=== PATIENT | male | born 1970 | race Caucasian/White ===

== ENCOUNTER → 2018-10-08 08:48 | Outpatient (CLI) | payer OTHER, SELFPAY ==
[2018-10-08 11:16] LABS: Cholesterol 190 mg/dL (140-199); HDL Cholesterol 58 mg/dL (40-60); LDL Cholesterol Calculated 117 mg/dL (<100); Triglycerides 77 mg/dL (35-150)
== END ==
PROVIDERS: Family Provider Internal Medicine; PCP Internal Medicine; Visit Provider Internal Medicine
DX: E78.00 Pure hypercholesterolemia, unspecified (principal)
CPT/HCPCS: 36415; 80061

== ENCOUNTER → 2019-08-01 18:35 | Outpatient (CLI) | payer OTHER, SELFPAY ==
--- NOTE | 2019-08-01 18:38 | DI.MRI.S_ITS ---
PROCEDURE: MR CERVICAL SPINE WO CON INDICATIONS: CERVICALGIA TECHNIQUE: Noncontrast sagittal T1 spin echo and T2 fast spin echo, sagittal STIR, foraminal oblique sagittal T2 fast spin echo, and axial gradient echo or T2 fast spin echo through the cervical spine. COMPARISON: None. FINDINGS: Image quality: Excellent. Alignment and Curvature: There is normal bony alignment. Bone Marrow: Marrow demonstrates normal overall signal. Spinal Cord: Visualized spinal cord has normal size and signal. No cerebellar tonsillar herniation. Paraspinous Soft Tissues: No paravertebral masses. Prevertebral soft tissues are normal in thickness. C2-C3: Mild central posterior disc protrusion without canal stenosis. Mild bilateral facet hypertrophy. No significant foraminal narrowing. C3-C4: Mild disc bulge. No canal stenosis. Mild bilateral facet hypertrophy. Mild bilateral foraminal narrowing. C4-C5: Mild disc bulge. No significant canal stenosis. Mild bilateral facet hypertrophy. Mild bilateral foraminal narrowing. C5-C6: A left posterior lateral disc protrusion/extrusion flattens the left ventral cord and obliterates the left C6 nerve root in the lateral recess and foramen. The bilateral facet hypertrophy. Mild right foraminal narrowing. C6-C7: There is moderate diffuse disc bulge. There is right posterior lateral disc protrusion. There is indentation on the ventral cord and moderate to severe canal stenosis. There is impingement on the right C7 nerve root in in the right lateral recess and medial right foramen by disc protrusion. There is bilateral facet hypertrophy. Left uncovertebral joint hypertrophy results in left foraminal narrowing impingement on the left C7 nerve root in the foramen. C7-T1: No canal stenosis or foraminal stenosis IMPRESSION: 1. At C5-C6, a left posterior lateral disc protrusion/extrusion flattens the left ventral cord and obliterates the left C6 nerve root in the left lateral recess and left foramen. 2. At C6-C7, there is moderate diffuse disc bulge resulting in moderate to severe canal stenosis. There is right posterior lateral disc protrusion which impinges on the right C7 nerve root in the right lateral recess and medial right foramen. There is also severe left foraminal narrowing and impingement on the left C7 nerve root. Dictated by: Aftab Murray M.D. on 08/04/2019 at 9:24 Approved by: Aftab Murray M.D. on 08/04/2019 at 9:35
== END ==
PROVIDERS: Family Provider Internal Medicine; PCP Internal Medicine; Visit Provider Physician Assistant
DX: M50.222 Other cervical disc displacement at C5-C6 level (principal); M48.02 Spinal stenosis, cervical region; M79.602 Pain in left arm; R29.898 Other symptoms and signs involving the musculoskeletal system
CPT/HCPCS: 72141

== ENCOUNTER 2019-10-12 06:33 | Emergency (ER) | payer OTHER, SELFPAY ==
[2019-10-12 06:40] VITALS: BP 169/85; PULSE 52; RESP 15; TEMP 36.6; O2SAT 100
--- NOTE | 2019-10-12 06:58 | DI.CT.S_ITS ---
PROCEDURE: CT KIDNEY URETER BLADDER (KUB) INDICATIONS: r/u kidney stone TECHNIQUE: Noncontrast 5 mm thick sections acquired from the diaphragms to the symphysis. 5 mm thick coronal and sagittal reformats were then performed. For radiation dose reduction, the following was used: automated exposure control, adjustment of mA and/or kV according to patient size. COMPARISON: None. FINDINGS: Image quality: Excellent. Lung bases: Lung bases are clear. Heart size is normal. Urinary system: Both kidneys are normal in size. No renal calculi are evident. There is no significant hydronephrosis or perinephric edema. There is mild hydroureter on the right with a calculus evident within the proximal right ureter just beyond the ureteropelvic junction, which measures 3 x 4 x 5 mm. No additional ureteral calculi are identified. There is no left-sided hydroureter. The urinary bladder is unremarkable. No bladder calculi are evident. Other solid organs: Liver is normal in size. Gallbladder is not enlarged or inflamed. Pancreas is normal in contours. Spleen is normal in size. No adrenal nodules. Peritoneum and bowel: The stomach is unremarkable. The small bowel loops are nondilated. A moderate amount of residual stool is identified throughout the colon. The appendix is well-visualized and normal. There may be minimal areas of distal colonic diverticulosis without surrounding inflammation to suggest diverticulitis. No free fluid or like a limited fluid collections evident. There is no free air. Nodes and vessels: No retroperitoneal or mesenteric adenopathy by size criteria. Aorta and inferior vena cava are normal in caliber. Other pelvic soft tissues: No free pelvic fluid. No inguinal hernias or adenopathy. The prostate is unremarkable. Bones: No suspicious bony lesions. No vertebral body compression fractures. Mild degenerative changes of the lower lumbar spine are present. IMPRESSION: 1. Proximal right ureteral calculus measuring up to 5 mm with associated periureteral stranding and mild hydroureter. No definite hydronephrosis. 2. No additional renal or ureteral calculi. 3. Possible constipation. No bowel obstruction. Dictated by: Dony Wagner M.D. on 10/12/2019 at 7:32 Approved by: Dony Wagner M.D. on 10/12/2019 at 7:36
[2019-10-12] MEDS: KETOROLAC 60 MG/2 ML VIAL 30 MG IV (07:03)
[2019-10-12] MEDS: ONDANSETRON 4 MG/2 ML INJ IV (07:04)
[2019-10-12 07:09] LABS: Add Manual Diff / Slide Review NO; Basophils Absolute Auto 100 /uL (0-100); Basophils Percent Auto 1.5 % (0-2); Eosinophils Absolute Auto 500 /uL (0-450); Eosinophils Percent Auto 7.5 % (2-4); Hematocrit 44.1 % (41-53); Hemoglobin 15.8 g/dL (13.5-17.5); Lymphocytes Absolute Auto 2000 /uL (1100-4500); Lymphocytes Percent Auto 30.5 % (25-40); Mean Corpuscular HGB Conc 35.7 % (30-36); Mean Corpuscular Hemoglobin 32.8 PG (26-34); Mean Corpuscular Volume 91.7 fL (80-100); Monocytes Absolute Auto 700 /uL (0-900); Monocytes Percent Auto 10.2 % (3-14); Neutrophils Absolute Auto 3300 /uL (1500-7000); Neutrophils Percent Auto 50.3 % (50-75); Platelet Count 183 X10^3/uL (150-400); Red Blood Cell Count 4.81 X10^6/uL (4.5-5.9); Red Cell Distribution Width 12.8 % (11.6-14.8); White Blood Cell Count 6.5 X10^3/uL (4.5-11.0)
[2019-10-12 07:12] LABS: Alanine Aminotransferase 23 IU/L (<50); Albumin 4.7 g/dL (3.5-5.0); Albumin Globulin Ratio 1.4 (1.0-2.8); Alkaline Phosphatase 64 U/L (38-126); Aspartate Aminotransferase 33 IU/L (17-59); BUN Creatinine Ratio 15.7 (6-22); Blood Urea Nitrogen 11 mg/dL (9-20); Calcium 9.4 mg/dL (8.4-10.2); Carbon Dioxide 22 mmol/L (22-32); Chloride 106 mmol/L (98-107); Estimated Glomerular Filt Rate > 60.0 mL/min (>60); Globulin 3.3 g/dL (1.7-4.1); Glucose 124 mg/dL (70-100); HEMOLYSIS < 15 (0-50); Lipase 88 U/L (23-300); Potassium 3.9 mmol/L (3.4-5.1); Sodium 141 mmol/L (137-145)
--- NOTE | 2019-10-12 07:47 | ED_ITS ---
HPI - Back Pain/Injury General Chief Complaint: Back Pain/Injury Stated Complaint: right lower back and stomach pain Time Seen by Provider: 10/12/19 07:19 Source: patient Limitations: no limitations History of Present Illness HPI Narrative: Patient is a 49-year-old male who presents with right-sided flank pain which started suddenly radiating around his abdomen this morning. He felt nauseous he did not throw up he actually had a regular bowel movement. He has no prior history of kidney stones his urine does appear dark and bloody. He says he was fine last night. He has received Toradol and Zofran prior to my evaluation and his pain is significantly. MD Complaint: back pain (Right flank) Quality: sharp Radiation: abdomen Related Data Previous Rx's Medication Instructions Recorded hydrocodone-acetaminophen 1 tab PO Q6H PRN #10 tab 10/12/19 ondansetron 4 mg PO Q8H PRN #10 tab 10/12/19 Allergies Allergy/AdvReac Type Severity Reaction Status Date / Time No Known Drug Allergies Allergy Verified 10/12/19 07:01 Review of Systems Review of Systems Narrative: GENERAL: Denies chills, fatigue, malaise, fever, sweats, travel HEENT: Denies sinus pain, ear pain, sore throat, difficulty swallowing, neck pain RESPIRATORY: Denies dyspnea, cough, wheezing, hemoptysis, sputum. CARDIOVASCULAR: Denies chest pain, palpitations, orthopnea, edema GASTROINTESTINAL: Denies nausea, vomiting, abdominal pain, diarrhea, constipation, melena. : See HPI MUSCULOSKELETAL: Denies weakness, joint pain, or bony pain SKIN: No rash, no erythema, no pruritus NEUROLOGIC: Denies weakness, dizziness, headache, numbness, change in speech, confusion PSYCHIATRIC: No concerning psychosocial issues. 12 point review of systems is negative except for those stated above and HPI Patient History Medical History Patient denies medical problems (Acute) Exam Initial Vital Signs Initial Vital Signs: Vital Signs Temperature 97.9 F 10/12/19 06:40 Pulse Rate 52 L 10/12/19 06:40 Respiratory Rate 15 10/12/19 06:40 Blood Pressure 169/85 H 10/12/19 06:40 Pulse Oximetry 100 10/12/19 06:40 GENERAL: Well-appearing, well-nourished and in no acute distress. HEENT: Head atraumatic,EOMI, pupils reactive, face symmetric, moist mucous membrane CARDIOVASCULAR: Regular rate and rhythm without murmurs, rubs or gallops. RESPIRATORY: Breath sounds equal bilaterally, no wheezes rales or rhonchi. ABDOMEN: Soft, nontender. Normoactive bowel sounds all 4 quadrants. No guarding or rebound. : Mild right CVA tenderness EXTREMITIES: Normal range of motion, no clubbing or edema. Neurovascularly intact NEUROLOGICAL: Alert and oriented x4.Normal gait and speech. SKIN: Warm, dry, no laceration, no petechiae, no rashes or lesions. Course Orders Ordered: ED Orders 10/12/19 06:45 CBC Auto Diff [Complete Blood Count AUTO DIFF] Stat Comprehensive Metabolic Panel Stat Lipase Stat 10/12/19 06:58 CT kidney ureter bladder (KUB) Stat 10/12/19 08:00 UA Complete [Urinalysis and Microscopic] Stat Discontinued Medications Ketorolac Tromethamine (Toradol) 30 mg IV NOW ONE Stop: 10/12/19 06:59 Last Admin: 10/12/19 07:03 Dose: 30 mg Documented by: AMAN Ondansetron HCl (Zofran) 4 mg IV NOW ONE Stop: 10/12/19 06:59 Last Admin: 10/12/19 07:04 Dose: 4 mg Documented by: AMAN Vital Signs Vital signs: Vital Signs - 8 hr 10/12/19 06:40 10/12/19 10:01 Temperature 97.9 F Pulse Rate 52 L 80 Respiratory Rate 15 18 Blood Pressure 169/85 H 125/72 Pulse Oximetry 100 100 MDM - Back Pain/Injury Lab Data Attestation: I reviewed the patient's lab results. Result diagrams: 10/12/19 06:45 10/12/19 06:45 Labs: Lab Results 10/12/19 10/12/19 10/12/19 Range/Units 06:45 06:45 06:45 WBC 6.5 (4.5-11.0) X10^3/uL RBC 4.81 (4.5-5.9) X10^6/uL Hgb 15.8 (13.5-17.5) g/dL Hct 44.1 (41-53) % MCV 91.7 (80-100) fL MCH 32.8 (26-34) PG MCHC 35.7 (30-36) % RDW 12.8 (11.6-14.8) % Plt Count 183 (150-400) X10^3/uL Neut % (Auto) 50.3 (50-75) % Lymph % (Auto) 30.5 (25-40) % [place] % (Auto) 10.2 (3-14) % Eos % (Auto) 7.5 H (2-4) % Baso % (Auto) 1.5 (0-2) % Neut # (Auto) 3300 (6003-6466) /uL Lymph # (Auto) 2000 (5399-2824) /uL [place] # (Auto) 700 (0-900) /uL Eos # (Auto) 500 H (0-450) /uL Baso # (Auto) 100 (0-100) /uL Sodium 141 (137-145) mmol/L Potassium 3.9 (3.4-5.1) mmol/L Chloride 106 (98-107) mmol/L Carbon Dioxide 22 (22-32) mmol/L BUN 11 (9-20) mg/dL Creatinine 0.70 (0.66-1.25) mg/dL Estimated GFR > 60.0 (>60) mL/min BUN/Creatinine Ratio 15.7 (6-22) Glucose 124 H (70-100) mg/dL Calcium 9.4 (8.4-10.2) mg/dL Total Bilirubin 1.0 (0.2-1.3) mg/dL AST 33 (17-59) IU/L ALT 23 (<50) IU/L Alkaline Phosphatase 64 (38-126) U/L Total Protein 8.0 (6.3-8.2) g/dL Albumin 4.7 (3.5-5.0) g/dL Globulin 3.3 (1.7-4.1) g/dL Albumin/Globulin Ratio 1.4 (1.0-2.8) Lipase 88 (23-300) U/L Urine Color Urine Appearance Urine pH (4.5-8.0) Ur Specific [place] (1.000-1.035) Urine Protein (Negative) Urine Glucose (UA) (Negative) g/dL Urine Ketones (NEGATIVE) Urine Occult Blood (Negative) Urine Nitrate (Negative) Urine Bilirubin (NEGATIVE) Urine Urobilinogen (0.2) E.U./dL Ur Leukocyte Esterase (NEGATIVE) Urine RBC (0-5/HPF) Urine WBC (0-5/HPF) Ur Squamous Epith Cells (0-5/HPF) Urine Bacteria (None) Ur Culture Indicated? 10/12/19 Range/Units 08:00 WBC (4.5-11.0) X10^3/uL RBC (4.5-5.9) X10^6/uL Hgb (13.5-17.5) g/dL Hct (41-53) % MCV (80-100) fL MCH (26-34) PG MCHC (30-36) % RDW (11.6-14.8) % Plt Count (150-400) X10^3/uL Neut % (Auto) (50-75) % Lymph % (Auto) (25-40) % [place] % (Auto) (3-14) % Eos % (Auto) (2-4) % Baso % (Auto) (0-2) % Neut # (Auto) (6717-5693) /uL Lymph # (Auto) (9899-8069) /uL [place] # (Auto) (0-900) /uL Eos # (Auto) (0-450) /uL Baso # (Auto) (0-100) /uL Sodium (137-145) mmol/L Potassium (3.4-5.1) mmol/L Chloride (98-107) mmol/L Carbon Dioxide (22-32) mmol/L BUN (9-20) mg/dL Creatinine (0.66-1.25) mg/dL Estimated GFR (>60) mL/min BUN/Creatinine Ratio (6-22) Glucose (70-100) mg/dL Calcium (8.4-10.2) mg/dL Total Bilirubin (0.2-1.3) mg/dL AST (17-59) IU/L ALT (<50) IU/L Alkaline Phosphatase (38-126) U/L Total Protein (6.3-8.2) g/dL Albumin (3.5-5.0) g/dL Globulin (1.7-4.1) g/dL Albumin/Globulin Ratio (1.0-2.8) Lipase (23-300) U/L Urine Color Brown Urine Appearance Cloudy Urine pH 8.5 H (4.5-8.0) Ur Specific [place] 1.015 (1.000-1.035) Urine Protein 1+ H (Negative) Urine Glucose (UA) Negative (Negative) g/dL Urine Ketones 1+ H (NEGATIVE) Urine Occult Blood 3+ H (Negative) Urine Nitrate Negative (Negative) Urine Bilirubin Negative (NEGATIVE) Urine Urobilinogen 0.2 (0.2) E.U./dL Ur Leukocyte Esterase Negative (NEGATIVE) Urine RBC >100/hpf (0-5/HPF) Urine WBC 1-5/hpf (0-5/HPF) Ur Squamous Epith Cells 1-5 /hpf (0-5/HPF) Urine Bacteria None seen (None) Ur Culture Indicated? Cult not indicated Imaging Data CT scan - abdomen/pelvis: Radiologist's Impression: Preliminary report: Small proximal right ureteral stone with mild right hydronephrosis. The stone measures 2.5 x 2.5 x 4.3 mm no distal ureteral stone no stone or obstruction on the left MDM Narrative Medical decision making narrative: The patient's pain is controlled after Toradol requiring no further medications. No sign of renal failure kidney stone is relatively small he should pass it. He has follow-up with PCP who can refer him to urology if needed Discharge Plan Departure Patient Disposition: Home Clinical Impression: Renal calculus, right Discharge Date/Time: 10/12/19 10:00 Instructions: DI for Kidney Stones Activity Restrictions/Additional Instructions: * You've been diagnosed with kidney stone * What to do: Increase fluid intake, Strain urine, try to catch stone * Please follow-up with your primary care provider in the next 2-3 days, you may require urology consultation please discuss this with them -If you should have fever, or pain is uncontrolled with medication at home or any other concerning symptoms return to ER for further evaluation MEDICATIONS Take Motrin 800 mg every 8 hours as needed for pain Take [place] every 6 hours if needed for severe pain Take Zofran every 4-6 hours if needed for nausea CONTROLLED SUBSTANCE DISCHARGE (Narcotoic/benzodiazepine) 1. You have been prescribed narcotic medications, it does have acetaminophen/Tylenol/paracetamol in it so do not take extra Tylenol or Tylenol containing products 2. Please understand that we cannot provide further refills of narcotics, benzodiazepines or controlled substances through the ED and her pain management will need to be through your provider. 3. While on these medications you cannot drive or operate heavy machinery. 4. You cannot sign legal documents or perform any duties such as this. 5. As long as you're taking opiate pain medications he should also be taking a stool softener such as Colace, Dulcolax, MiraLAX or prune juice, to help avoid constipation. Prescriptions: New hydrocodone-acetaminophen 5-325 mg tablet 1 tab PO Q6H PRN (Reason: pain) Qty: 10 RF: 0 ondansetron 4 mg tablet,disintegrating 4 mg PO Q8H PRN (Reason: nausea and vomiting) Qty: 10 RF: 0 Referrals: Jonathon Sykes MD [Primary Care Provider] -
[2019-10-12 08:16] LABS: Appearance Urine UA CLOUDY; Bacteria Urine None Seen; Bilirubin Urine UA NEGATIVE (NEGATIVE); Color Urine UA BROWN; Glucose Urine UA NEGATIVE (Negative); Ketones Urine UA 1+ (NEGATIVE); Leukocyte Esterase Urine UA NEGATIVE (NEGATIVE); Nitrite Urine UA NEGATIVE (Negative); Occult Blood Urine UA 3+ (Negative); Protein Urine UA 1+ (Negative); Specific Gravity Urine UA 1.015 (1.000-1.035); Urobilinogen Urine UA 0.2 E.U./dL (0.2); pH Urine UA 8.5 (4.5-8.0)
[2019-10-12 08:33] LABS: RBC Urine >100/HPF (0-5/HPF)
[2019-10-12 08:34] LABS: Culture Indicated Urine Cult Not Indicated; Squamous Epithelial Cell Urine 1-5 /HPF (0-5/HPF); WBC Urine 1-5/HPF (0-5/HPF)
[2019-10-12 10:01] VITALS: BP 125/72; PULSE 80; RESP 18; O2SAT 100
== END 2019-10-12 10:00 | disposition home or self-care (01) ==
PROVIDERS: Emergency Medicine; Emergency Provider Emergency Medicine; Family Provider Internal Medicine; PCP Internal Medicine
DX: N20.0 Calculus of kidney (principal)
CPT/HCPCS: 36415; 74176; 80053; 81001; 83690; 85025; 96374; 96375; 99284; J1885; J2405

== ENCOUNTER → 2019-11-13 12:22 | Outpatient (ROUT) | payer OTHER, SELFPAY | PROVIDERS: Family Provider Internal Medicine; PCP Internal Medicine; Visit Provider Internal Medicine | DX: N20.1 Calculus of ureter (principal) | CPT/HCPCS: 87086 ==

== ENCOUNTER → 2021-12-13 13:02 | Outpatient (CLI) | payer OTHER, SELFPAY ==
[2021-12-13 17:01] LABS: COVID19 -Nasal RAPID Negative (Negative)
== END ==
PROVIDERS: Family Provider Internal Medicine; PCP Internal Medicine; Visit Provider Family Medicine Sleep Medicine
DX: Z20.822 Contact with and (suspected) exposure to COVID-19 (principal)
CPT/HCPCS: 87635; C9803

== ENCOUNTER 2021-12-14 09:30 | Day surgery (SDC) | payer OTHER, SELFPAY ==
[2021-12-14 09:43] VITALS: BP 132/83; PULSE 51; RESP 16; TEMP 36.1; O2SAT 99
[2021-12-14 09:44] VITALS: BMI 25.0
[2021-12-14] MEDS: SODIUM CHLORIDE 0.9% 1,000 ML 84 ML IV (09:51)
--- NOTE | 2021-12-14 10:20 | PM.HP.1 ---
History of Present Illness History of Present Illness Date Patient Seen: 12/14/21 Chief complaint: SDC Narrative: Family history of colon cancer in his father Patient History Medical History (Updated 12/14/21 @ 10:02 by Staci Bacon RN) Asthma History of melanoma History of renal calculi Surgical History (Updated 12/14/21 @ 10:01 by Staci Bacon RN) Hx of colonoscopy Hx of lymph node biopsy Family & Social History Social History: household members spouse Tobacco & Substance use: Smoking Status Never smoker alcohol intake current alcohol intake frequency 0-2 drinks per day Substance Use Type marijuana Meds Home Medications and Allergies Home Medications Medication Instructions Recorded Confirmed Type No Known Home Medications 12/14/21 12/14/21 History Allergies Allergy/AdvReac Type Severity Reaction Status Date / Time No Known Drug Allergies Allergy Verified 12/14/21 09:41 Exam Vital Signs (past 8 hours): - 12/14/21 09:43 Temperature 96.9 F L Pulse Rate 51 L Respiratory Rate 16 Blood Pressure 132/83 Pulse Oximetry 99 Oxygen Delivery Method Room Air Narrative Exam Narrative: Oropharynx free of lesions Chest clear to auscultation and percussion Cardiac exam reveals no S3 or murmur Assessment & Plan Assessment & Plan narrative: Family history of colon cancer need for follow-up colonoscopy at a 5 year interval. Risks, benefits, alternatives have been explained. Time Spent With Patient Critical Care time: I spent a total of [] minutes of critical care time on this patient's care today; this time is exclusive of procedural time.
--- NOTE | 2021-12-14 10:21 | PM.OP.COLON ---
Operative Date/Time/Diagnoses Date of procedure: 12/14/21 Pre-op diagnosis: See indication and findings Procedure & Clinicians Study performed: Colonoscopy Indications: Family history of colon cancer in his father Surgeon: Clarice Crockett Procedure Notes Procedure in detail: After informed consent was obtained the patient was placed in left lateral decubitus position. The video colonoscope was introduced the rectum slowly advanced cecum. Preparation was good. On slow withdrawal mucosa was carefully examined. The scope was removed. The patient tolerated procedure well. Blood loss none Complications none Sedation mac Findings 1. Normal colonoscopy to cecum Plan for follow-up colonoscopy in 5 years
[2021-12-14 11:30] VITALS: BP 116/80; PULSE 52; RESP 16; TEMP 36.6; O2SAT 94
[2021-12-14 11:35] VITALS: BP 118/78; PULSE 55; RESP 15; O2SAT 95
[2021-12-14 11:40] VITALS: BP 115/71; PULSE 51; RESP 15; O2SAT 95
[2021-12-14 11:45] VITALS: BP 109/72; PULSE 58; RESP 16; O2SAT 96
[2021-12-14 11:50] VITALS: BP 125/75; PULSE 51; RESP 14; O2SAT 97
== END 2021-12-14 12:08 | disposition home or self-care (01) ==
PROVIDERS: Family Provider Internal Medicine; PCP Internal Medicine; Referring Provider Internal Medicine Gastroenterology; Visit Provider Internal Medicine Gastroenterology
PROC: 0DJD8ZZ Inspection of Lower Intestinal Tract, Via Natural or Artificial Opening Endoscopic (ICD-10-PCS; CPT 45378; principal; 2021-12-14 11:00)
DX: Z12.11 Encounter for screening for malignant neoplasm of colon (principal); Z80.0 Family history of malignant neoplasm of digestive organs; J45.909 Unspecified asthma, uncomplicated
CPT/HCPCS: 45378; J2704

== ENCOUNTER → 2022-05-25 14:15 | Outpatient (CLI) | payer OTHER, SELFPAY ==
[2022-05-25 14:34] LABS: Hematocrit 38.3 % (41-53); Hemoglobin 13.4 g/dL (13.5-17.5); Mean Corpuscular HGB Conc 35.1 % (30-36); Mean Corpuscular Hemoglobin 32.2 PG (26-34); Mean Corpuscular Volume 91.8 fL (80-100); Platelet Count 201 X10^3/uL (150-400); Red Blood Cell Count 4.17 X10^6/uL (4.5-5.9); Red Cell Distribution Width 12.7 % (11.6-14.8); White Blood Cell Count 5.7 X10^3/uL (4.5-11.0)
[2022-05-25 15:00] LABS: Alanine Aminotransferase 25 IU/L (<50); Albumin 4.3 g/dL (3.5-5.0); Albumin Globulin Ratio 1.4 (1.0-2.8); Alkaline Phosphatase 51 U/L (38-126); Aspartate Aminotransferase 33 IU/L (17-59); BUN Creatinine Ratio 18.8 (6-22); Bilirubin Total 0.4 mg/dL (0.2-1.3); Blood Urea Nitrogen 13 mg/dL (9-20); Calcium 8.7 mg/dL (8.4-10.2); Carbon Dioxide 29 mmol/L (22-32); Chloride 104 mmol/L (98-107); Cholesterol 194 mg/dL (140-199); Estimated Glomerular Filt Rate > 60 mL/min (>60); Glucose 93 mg/dL (70-100); HDL Cholesterol 50 mg/dL (40-60); HEMOLYSIS < 15 (0-50); LDL Cholesterol Calculated 117 mg/dL (<100); Potassium 4.1 mmol/L (3.4-5.1); Sodium 137 mmol/L (137-145); Total Protein 7.3 g/dL (6.3-8.2); Triglycerides 137 mg/dL (35-150)
[2022-05-25 15:30] LABS: Prostate Specific Antigen 2.74 ng/mL (0.10-4.00); TSH w/ Reflex to FT4 1.62 uIU/mL (0.47-4.68)
== END ==
PROVIDERS: Family Provider Internal Medicine; PCP Internal Medicine; Referring Provider Internal Medicine; Visit Provider Internal Medicine
DX: E78.2 Mixed hyperlipidemia (principal); N13.8 Other obstructive and reflux uropathy; N40.1 Benign prostatic hyperplasia with lower urinary tract symptoms
CPT/HCPCS: 36415; 80053; 80061; 84153; 84443; 85027

== ENCOUNTER → 2022-05-30 07:55 | Outpatient (CLI) | payer OTHER, SELFPAY ==
[2022-05-30 09:12] LABS: Add Manual Diff / Slide Review NO; Basophils Absolute Auto 100 /uL (0-100); Basophils Percent Auto 1.4 % (0-2); Eosinophils Absolute Auto 400 /uL (0-450); Eosinophils Percent Auto 7.2 % (2-4); Hematocrit 38.4 % (41-53); Hemoglobin 13.7 g/dL (13.5-17.5); Lymphocytes Absolute Auto 1700 /uL (1100-4500); Lymphocytes Percent Auto 32.2 % (25-40); Mean Corpuscular HGB Conc 35.7 % (30-36); Mean Corpuscular Hemoglobin 32.5 PG (26-34); Mean Corpuscular Volume 91.1 fL (80-100); Monocytes Absolute Auto 600 /uL (0-900); Monocytes Percent Auto 11.1 % (3-14); Neutrophils Absolute Auto 2600 /uL (1500-7000); Neutrophils Percent Auto 48.1 % (50-75); Platelet Count 185 X10^3/uL (150-400); Red Blood Cell Count 4.21 X10^6/uL (4.5-5.9); Red Cell Distribution Width 12.6 % (11.6-14.8); White Blood Cell Count 5.3 X10^3/uL (4.5-11.0)
[2022-05-30 09:27] LABS: Lactate Dehydrogenase 388 U/L (313-618)
[2022-05-30 09:53] LABS: HEMOLYSIS < 15 (0-50); Iron 116 ug/dL (49-181)
[2022-05-30 09:59] LABS: Ferritin 21 ng/mL (18-464)
[2022-05-30 10:04] LABS: Percent Iron Saturation 33 % (20-50); Total Iron Binding Capacity 347 ug/dL (261-462); Transferrin 244 mg/dL (206-381)
[2022-05-30 10:13] LABS: Vitamin B12 426 pg/mL (239-931)
== END ==
PROVIDERS: Family Provider Internal Medicine; PCP Internal Medicine; Referring Provider Internal Medicine; Visit Provider Internal Medicine
DX: D64.9 Anemia, unspecified (principal); E53.8 Deficiency of other specified B group vitamins
CPT/HCPCS: 36415; 82607; 82728; 83540; 83550; 83615; 85025

== ENCOUNTER → 2022-07-18 08:57 | Outpatient (CLI) | payer OTHER, SELFPAY ==
[2022-07-18 10:38] LABS: Hematocrit 39.5 % (41-53); Hemoglobin 13.9 g/dL (13.5-17.5); Mean Corpuscular HGB Conc 35.2 % (30-36); Mean Corpuscular Hemoglobin 32.3 PG (26-34); Platelet Count 177 X10^3/uL (150-400); Red Cell Distribution Width 12.6 % (11.6-14.8); White Blood Cell Count 4.9 X10^3/uL (4.5-11.0)
[2022-07-18 10:56] LABS: HEMOLYSIS < 15 (0-50); Iron 127 ug/dL (49-181)
[2022-07-18 11:08] LABS: Percent Iron Saturation 35 % (20-50); Total Iron Binding Capacity 368 ug/dL (261-462); Transferrin 281 mg/dL (206-381)
[2022-07-18 11:32] LABS: Ferritin 17 ng/mL (18-464)
== END ==
PROVIDERS: Family Provider Internal Medicine; PCP Internal Medicine; Referring Provider Internal Medicine; Visit Provider Internal Medicine
DX: D64.9 Anemia, unspecified (principal)
CPT/HCPCS: 36415; 82728; 83540; 83550; 85027

== ENCOUNTER → 2022-12-30 08:17 | Outpatient (CLI) | payer OTHER, SELFPAY ==
[2022-12-30 10:14] LABS: Cholesterol 194 mg/dL (140-199); Glucose 89 mg/dL (70-100); HDL Cholesterol 48 mg/dL (40-60); LDL Cholesterol Calculated 132 mg/dL (<100); Triglycerides 71 mg/dL (35-150)
[2022-12-30 10:44] LABS: Prostate Specific Antigen Scrn 2.96 ng/mL (0.1-4.0)
== END ==
PROVIDERS: Family Provider Internal Medicine; PCP Internal Medicine; Referring Provider Internal Medicine; Visit Provider Internal Medicine
DX: Z00.00 Encounter for general adult medical examination without abnormal findings (principal); Z12.5 Encounter for screening for malignant neoplasm of prostate
CPT/HCPCS: 36415; 80061; 82947; G0103

== ENCOUNTER → 2024-01-01 08:34 | Outpatient (CLI) | payer OTHER, SELFPAY ==
[2024-01-01 09:39] LABS: Cholesterol 177 mg/dL (140-199); Glucose 87 mg/dL (70-100); HDL Cholesterol 55 mg/dL (40-60); LDL Cholesterol Calculated 104 mg/dL (<100); Triglycerides 91 mg/dL (35-150)
[2024-01-01 10:00] LABS: Prostate Specific Antigen Scrn 3.03 ng/mL (0.1-4.0)
== END ==
PROVIDERS: Family Provider Internal Medicine; PCP Internal Medicine; Referring Provider Internal Medicine; Visit Provider Internal Medicine
DX: Z00.00 Encounter for general adult medical examination without abnormal findings (principal); Z12.5 Encounter for screening for malignant neoplasm of prostate
CPT/HCPCS: 36415; 80061; 82947; G0103

== ENCOUNTER → 2025-04-07 14:05 | Outpatient (CLI) | payer OTHER, SELFPAY ==
[2025-04-07 15:04] LABS: Cholesterol 205 mg/dL (140-199); Glucose 94 mg/dL (70-99); HDL Cholesterol 56 mg/dL (40-60); Triglycerides 129 mg/dL (35-150)
== END ==
PROVIDERS: PCP Internal Medicine; Referring Provider Internal Medicine; Visit Provider Internal Medicine
DX: Z00.00 Encounter for general adult medical examination without abnormal findings (principal); E78.2 Mixed hyperlipidemia; Z12.5 Encounter for screening for malignant neoplasm of prostate
CPT/HCPCS: 36415; 80061; 82947; G0103